=== PATIENT | male | born 1935 | race Caucasian/White ===

== ENCOUNTER 2016-10-17 20:33 | Emergency (ER) | payer OTHER ==
--- NOTE | ~2016-10-17 | CT71 ---
[facility] A Service of [facility] RADIOLOGY TEXT RESULTS PATIENT: RONY RENDON LOCATION: SED : 36 UNIT #: [id number] AGE: [address]: Myles Campbell PAC SEX: M ORDER DR: [id number] [address] [address] [id number] E MR#: [id number] Acc #: [id number] NAME: RONY RENDON : 1935 SEX: M STUDY DATE/TIME: 10/17/2016 21:08 UNIT: SED ROOM: STUDY DESCRIPTION: CT Head Wo Contrast Attending Physician: Myles Campbell P.A.-C. Ordering Physician: Myles Campbell P.A.-C. Primary Care Physician: No Primary Care Physician MEDICAL IMAGING REPORT This report is preliminary unless electronic signature is present. EXAM CT head without contrast. DATE OF EXAM 10/17/2016 INDICATIONS Dizziness. Patient fell and hit head on the floor tonight. Head pain. PROCEDURE Unenhanced CT head. COMPARISON 09/25/2010 TECHNIQUE NOTE: This CT exam was performed with one or more of the following radiation dose reduction techniques: automatic exposure control, adjustment of mA and/or kV according to patient size, and iterative reconstruction. FINDINGS No acute hemorrhage. No abnormal mass effect, extraaxial collection or hydrocephalus. Mild scalp contusion and laceration in the frontal region. No underlying calvarial fracture. IMPRESSION There is a mild scalp contusion/laceration in the frontal scalp. No underlying calvarial fracture. No acute intracranial finding. Dictated by... [facility] A Service of [facility] RADIOLOGY TEXT RESULTS PATIENT: RONY RENDON LOCATION: SED : 36 UNIT #: [id number] AGE: [address]: Myles Campbell PAC SEX: M ORDER DR: Ronnie Rivas M.D. THIS IS AN ELECTRONICALLY VERIFIED REPORT Ronnie Rivas M.D. at 10/20/2016 7:23 AM Joyce TD: 10/18/2016 19:01 JOB #: [id number] MEDICAL IMAGING REPORT
--- NOTE | ~2016-10-17 | EKG ---
PATIENT: RONY RENDON UNIT #: [id number] Ventricular Rate: 69 BPM Atrial Rate: 69 BPM P-R Interval: 136 ms QRS Duration: 96 ms Q-T Interval: 398 ms QTC Calculation(Bezet): 426 ms P [place]: 58 degrees Calculated R [place]: 34 degrees Calculated T [place]: 60 degrees Diagnosis Line: Normal sinus rhythm Diagnosis Line: Normal ECG Diagnosis Line: When compared with ECG of 03-JUN-2015 17:32, Diagnosis Line: No significant change was found Diagnosis Line: Confirmed by TOBIAS MICHAEL MD ([id number]) on Diagnosis Line: 10/21/2016 2:20:40 PM INTERPRETING MD: FERNANDA BROUSSARD
--- NOTE | ~2016-10-17 | CR63 ---
[facility] A Service of [facility] RADIOLOGY TEXT RESULTS PATIENT: RONY RENDON LOCATION: SED : 36 UNIT #: [id number] AGE: [address]: Myles Campbell PAC SEX: M ORDER DR: [id number] [place] [id number] E MR#: [id number] Acc #: [id number] NAME: RONY RENDON : 1935 SEX: M STUDY DATE/TIME: 10/17/2016 20:59 UNIT: SED ROOM: STUDY DESCRIPTION: CR Chest 2 View Attending Physician: Myles Campbell P.A.-C. Ordering Physician: Myles Campbell P.A.-C. Primary Care Physician: No Primary Care Physician MEDICAL IMAGING REPORT This report is preliminary unless electronic signature is present. EXAM 2 view chest. DATE OF EXAM 10/17/2016 INDICATIONS Dizziness. Status post fall tonight. PROCEDURE Frontal view and lateral views of the chest. COMPARISON 09/22/2015 FINDINGS Heart size within normal limits. Previous CABG. No dense consolidation, effusion or pneumothorax. IMPRESSION Previous CABG. No active process. Dictated by... Ronnie Rivas M.D. THIS IS AN ELECTRONICALLY VERIFIED REPORT Ronnie Rivas M.D. at 10/20/2016 7:23 AM JOSE L/john TD: 10/18/2016 18:41 JOB #: [id number] [facility] A Service of [facility] RADIOLOGY TEXT RESULTS PATIENT: RONY RENDON LOCATION: SED : 36 UNIT #: [id number] AGE: [address]: Myles Campbell PAC SEX: M ORDER DR: MEDICAL IMAGING REPORT
[~2016-10-17 20:33] MED LIST: ASPIRIN81 MG PO; ATORVASTATIN CA80 MG PO; BAYER ASA PO; CENTRUM SILVER; CENTRUM SILVER PO; IRON1 TAB; LISINOPRIL10 MG; LISINOPRIL10 MG PO; LORTAB 5/500 TA1 TA1 PO; METOPROLOL SUCC25 MG PO; METOPROLOL SUCC50 MG; PANTOPRAZOLE SO40 MG PO; SIMVASTATIN40 MG
[2016-10-17 20:42] LABS: BASOPHIL% 0.4 % (0-2.5); EOSINOPHIL# 0.1 X10e3 (0-0.7); EOSINOPHIL% 3.9 % (0.0-7.0); HEMOGLOBIN 10.4 gm/dL (13.0-16.0); LYMPHOCYTE# 1.1 X10e3 (1.0-3.5); LYMPHOCYTE% 33.5 % (17.0-45.0); MEAN CELL VOLUME 86.8 FL (83-96); MEAN CORPUSCULAR HEMOGLOBIN 28.1 PG (28-34); MEAN CORPUSCULAR HGB CONC 32.4 g/dL (30-36); MEAN PLATELET VOLUME 8.1 FL (6.5-11.5); MONOCYTE# 0.3 X10e3 (0-1.0); MONOCYTE% 10.1 % (3.0-12.0); NEUTROPHIL# 1.8 X10e3 (1.5-7.1); NEUTROPHIL% 52.1 % (40-75); PLATELET COUNT 117 X10e3 (140-420); RED BLOOD COUNT 3.69 X10e (3.90-5.60); RED CELL DISTRIBUTION WIDTH 15.1 % (11.0-15.5); WHITE BLOOD COUNT 3.4 X10e3 (4.0-10.5)
[2016-10-17 20:43] LABS: DIFF IND NO
[2016-10-17 20:57] LABS: POC - CKMB 1.3 ng/mL (0.0-7.9); POC - TROPONIN <0.05 ng/mL (<=0.05)
[2016-10-17 21:12] LABS: BLOOD UREA NITROGEN 36 mg/dL (9-23); CALCIUM SERUM 8.8 mg/dL (8.4-10.2); CARBON DIOXIDE 25 mmol/L (22-31); CHLORIDE 105 mmol/L (100-111); CREATININE SERUM 1.2 mg/dL (0.6-1.4); GLOM FILT RATE Estimated ABOVE60 mL/min (>60); GLUCOSE FASTING 105 mg/dL (70-110); POTASSIUM 3.5 mmol/L (3.5-5.1); SODIUM 138 mmol/L (135-145)
[2016-10-17 21:49] LABS: URINE SOURCE CLEAN CATCH
[2016-10-17 21:52] LABS: URINE APPEARANCE CLEAR; URINE BILIRUBIN NEG (NEG); URINE BLOOD NEG (NEG); URINE COLOR YELLOW; URINE GLUCOSE NEG (NORM); URINE KETONE NEG (NEG); URINE LEUKOCYTE ESTERASE NEG (NEG); URINE NITRATE NEG (NEG); URINE PROTEIN NEG (NEG)
[2016-10-17 21:57] LABS: MICRO INDICATED? NO
== END 2016-10-17 22:22 | disposition home or self-care (01) ==
LOC: SED 20:33
PROVIDERS: Physician Assistant
DX: S01.01XA Laceration without foreign body of scalp, initial encounter (principal); W19.XXXA Unspecified fall, initial encounter; Y92.512 Supermarket, store or market as the place of occurrence of the external cause
CPT/HCPCS: 12004; 36415; 70450; 71020; 80048; 81003; 82553; 83874; 84484; 85025; 93005; 99283